=== PATIENT | female | born 1945 | race Caucasian/White ===

== ENCOUNTER → 2022-12-29 09:56 | Outpatient (CLI) | payer MEDICARE, SELFPAY | PROVIDERS: PCP Family Medicine; Visit Provider Urology | DX: R31.0 Gross hematuria (principal); N20.0 Calculus of kidney; N95.2 Postmenopausal atrophic vaginitis; Z77.22 Contact with and (suspected) exposure to environmental tobacco smoke (acute) (chronic); Z98.890 Other specified postprocedural states; Z87.19 Personal history of other diseases of the digestive system; Z86.711 Personal history of pulmonary embolism; Z79.01 Long term (current) use of anticoagulants | CPT/HCPCS: 81002; 87077; 87086; 87186; 99215 ==